=== PATIENT | female | born 1970 | race Caucasian/White ===

== ENCOUNTER 2018-06-19 10:36 | Outpatient (CLI) ==
--- NOTE | 2018-06-19 11:25 | DI ---
EXAM: Single frontal view of the chest and three views of the right ribs HISTORY: Right chest pain. COMPARISON: None FINDINGS: The lungs are clear. Cardiomediastinal silhouette is normal. The right ribs demonstrate n o cortical irregularity or displaced fracture. There is no lytic or blastic lesion identified. Ther e are surgical clips in the right upper abdomen. IMPRESSION: The no acute abnormality or displaced rib fracture.
== END 2018-06-19 10:37 | disposition home or self-care (01) ==
LOC: RAD 10:36
PROVIDERS: ATTEND Family Medicine
DX: R07.81 Pleurodynia (principal); M54.6 Pain in thoracic spine

== ENCOUNTER 2019-02-14 13:26 | Outpatient (CLI) | END 2019-02-14 13:27 | disposition home or self-care (01) | LOC: RHC-LAB 13:26 → FCC-LAB 13:27 | PROVIDERS: ATTEND Family Medicine | DX: R30.0 Dysuria (principal) | CPT/HCPCS: 87086 ==